=== PATIENT | male | born 1950 | race Caucasian/White ===

== ENCOUNTER 2017-08-18 23:18 | Inpatient (IN) ==
[2017-08-18] MEDS ORDERED: Acetaminophen 325 MG TABLET PO ONE (23:22)
[2017-08-18] MEDS ORDERED: Ondansetron 4 MG/2 ML VIAL IVP ONE (23:22)
[2017-08-18] MEDS ORDERED: 0.9 % Sodium Chloride 1,000 ML IVC ONE (23:25)
--- NOTE | 2017-08-18 23:42 | Emergency Department Note ---
Disposition Clinical Impression: Hypoxia, Pneumonia, COPD exacerbation Disposition: Transfer Short-Term Hosp Condition: Fair Referrals: Mackenzie Lopez [Primary Care Provider] - Forms: ED Satisfaction Letter Time of Disposition: 00:31 ( will admit) Weakness HPI - General Chief complaint: ED Weakness Stated complaint: fever, body aches, and weakness Time Seen by Provider: 08/18/17 23:22 Source: patient, EMS Mode of arrival: EMS Limitations: no limitations Nursing Notes Reviewed: Yes Vital Signs Reviewed: Yes - History of Present Illness HPI Narrative: [age]-year-old male presented to the emergency department via EMS, the complex of generalized weakness. Patient reports that this evening he went to go take a shower and he had some problems with rigors and chills, he covered himself in a blanket and then noted that he was running a temperature. Patient also reports that he has had frequent falls but this is been ongoing for a while. Patient denies chest pain he does complain of shortness shortness of breath. 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 Location: generalized Migration: none Pain Severity: none Pain Scale: 0 Worsens with: none Associated symptoms: Reports: denies other symptoms - Related Data Home Medications Medication Instructions Recorded Confirmed Aspirin [Lo-Dose Aspirin EC] 81 mg PO DAILY 08/18/17 08/18/17 Atorvastatin Calcium [Lipitor] 20 mg PO DAILY 08/18/17 08/18/17 Citalopram Hydrobromide [Celexa] 40 mg PO DAILY 08/18/17 08/18/17 Clopidogrel [Plavix] 75 mg PO DAILY 08/18/17 08/18/17 Clotrimazole/Betameth Dip CRM 1 appl TP BID 08/18/17 08/18/17 [Lotrisone CRM] Ergocalciferol (VITAMIN D2) 50,000 unit PO QWEEK 08/18/17 08/18/17 [Drisdol (50,000 Unit)] Flecainide Acetate 50 mg PO BID 08/18/17 08/18/17 FluocinoNIDE 0.05% CRM [Lidex] 1 applic TP BID 08/18/17 08/18/17 Klonopin 1 mg PO 08/18/17 Omeprazole [PriLOSEC] 40 mg PO BID 08/18/17 08/18/17 Potassium Chloride [K-Tab ER] 10 meq PO DAILY 08/18/17 08/18/17 Verapamil HCl [Verapamil ER] 180 mg PO DAILY 08/18/17 08/18/17 hydroCHLOROthiazide 25 mg PO DAILY 08/18/17 08/18/17 [Hydrochlorothiazide] metFORMIN [Glucophage] 1,000 mg PO BIDWM 08/18/17 08/18/17 Allergies Allergy/AdvReac Type Severity Reaction Status Date / Time tetanus and diphtheria Allergy Hives Verified 08/18/17 23:19 toxoids Antihistamines - Alkylamine AdvReac Palpitation Verified 08/18/17 23:19 s Beta-Blockers AdvReac Palpitation Verified 08/18/17 23:19 (Beta-Adrenergic Bloc s All systems ED: reviewed and negative except as stated. Respiratory: Reports: cough, dyspnea Past Medical History - Past Medical History Medical history: Reports: asthma, COPD, diabetes, hyperlipidemia, hypertension Psychiatric history: Reports: anxiety, depression, PTSD - Social History Smoking Status: Current every day smoker Smokeless Tobacco Status: No Alcohol use: Reports: none Drug use: Reports: none Physical Exam - General Limitations: no limitations General appearance: alert, in no apparent distress - Head Head exam: atraumatic, normocephalic, normal inspection - Eye Eye exam: Present: normal appearance, PERRL, EOMI - Expanded Eye Exam Pupils: Left: reactive - ENT ENT exam: normal exam, normal oropharynx, mucous membranes moist - Expanded ENT Exam External ear exam: Present: normal external inspection Mouth exam: Present: normal external inspection Teeth exam: Present: normal inspection Throat exam: Present: normal inspection - Neck Neck exam: Present: normal inspection, full ROM, trachea midline - Chest Chest inspection: Present: normal inspection, symmetric chest wall rise - Respiratory Respiratory exam: Present: wheezes - Cardiovascular Cardiovascular exam: Present: regular rate, normal rhythm, normal heart sounds - Abdominal Exam Abdominal exam: Present: soft, Non-Tender. Absent: tenderness, distention, guarding, rebound, rigidity - Extremities Exam Extremities exam: Present: normal inspection, full ROM. Absent: tenderness, pedal edema - Expanded Upper Extremity Exam Shoulder exam: Present: normal inspection, full ROM Arm exam: Present: normal inspection, full ROM Elbow exam: Present: normal inspection, full ROM Forearm/Wrist exam: Present: normal inspection, full ROM Hand exam: Present: normal inspection, full ROM Vascular exam: Normal: capillary refill, radial pulse - Expanded Lower Extremity Exam Hip/Pelvis exam: Present: normal inspection, full ROM Upper leg exam: Present: normal inspection, full ROM Knee exam: Present: normal inspection, full ROM Lower leg exam: Present: normal inspection, full ROM Ankle exam: Present: normal inspection, full ROM Foot/toe exam: Present: normal inspection, full ROM Neurovascular/Tendon exam: Absent: motor deficit, sensory deficit, tendon deficit - Back Exam Back exam: Present: normal inspection, full ROM. Absent: tenderness - Neurological Exam Neurological exam: Present: alert, oriented X3 - Expanded Neurological Exam Patient oriented to: Present: person, place, time Coma Scale Eye Opening: Spontaneous Coma Scale Motor Response: Obeys Commands Coma Scale Verbal Response: Oriented Coma Scale Total: 15 - Psychiatric Psychiatric exam: Present: normal affect, normal mood - Skin Skin exam: Present: warm, dry, intact, normal color Course Vital Signs Temperature 99.3 F 08/18/17 23:22 Pulse Rate 105 08/18/17 23:22 Respiratory Rate 18 08/18/17 23:22 Blood Pressure 118/67 08/18/17 23:22 O2 Sat by Pulse Oximetry 95 08/18/17 23:22 Temperature 99.3 F 08/18/17 23:22 Pulse Rate 97 08/19/17 00:26 Respiratory Rate 18 08/19/17 00:26 Blood Pressure 110/56 08/19/17 00:26 O2 Sat by Pulse Oximetry 96 08/19/17 00:26 Oxygen Delivery Oxygen Delivery Room Air Weakness - [facility] Narrative Medical decision making narrative: Labs including blood culture 2 urine analysis was obtained chest x-ray and CT of head without contrast. Patient was given a 1000 ml bolus of normal saline and Zofran 4 mg IV and meclizine 50 mg by mouth. Patient was orthostatic. After blood cultures patient was given 2 g of Rocephin IV. He was given DuoNeb , and albuterol 1. - Differential Diagnosis Differential Diagnosis: Likely: anemia - Medical Records Medical records reviewed: Yes I reviewed the patient's medical records. - Lab Data Lab results reviewed: Yes I reviewed the patient's lab results. Result diagrams: 08/18/17 23:30 08/18/17 23:30 Lab Results 08/18/17 08/18/17 08/18/17 Range/Units 23:30 23:30 23:30 WBC 18.7 H (4.3-11.1) K/mcL RBC 4.03 L (4.19-5.50) M/mcL Hgb 12.5 L (12.9-16.9) g/dL Hct 36.0 L (37.5-50.1) % MCV 89.3 (83.0-100.0) fL MCH 31.0 (28.0-33.3) pg MCHC 34.7 (31.6-35.5) g/dL RDW 12.3 (11.5-14.5) % Plt Count 317 (140-400) K/mcL MPV 9.3 L (9.4-12.4) fL Immature Gran % 0.8 (0-4) % Seg Neutrophils % 85.4 % Lymphocytes % 5.1 % Monocytes % 8.4 % Eosinophils % 0.0 % Basophils % 0.3 % Neutrophils # 16.0 H (1.6-8.9) K/mcL Lymphocytes # 1.0 (0.6-4.6) K/mcL Monocytes # 1.6 H (0.0-1.3) K/mcL Eosinophils # 0.0 (0.0-0.6) K/mcL Basophils # 0.1 (0.0-0.2) K/mcL Sample Site ABG pH (7.32-7.45) pH Units ABG pCO2 (35-45) mmHg ABG pO2 (85-104) mmHg ABG HCO3 (21-27) mEq/L ABG Total CO2 (20-26) mEq/L ABG O2 Saturation (95-98) % ABG Base Excess (-2 to 3) mEq/L Inspired O2 (1-15=lpm xv15-086=%) Sodium 127 L (136-145) mEq/L Potassium 3.8 (3.5-5.1) mEq/L Chloride 96 L (98-107) mEq/L Carbon Dioxide 22 L (23-29) mEq/L BUN 14 (8-23) mg/dL Creatinine 0.91 (0.70-1.30) mg/dL Est GFR ( Amer) > 60 (> 60) Est GFR (Non-Af Amer) > 60 (> 60) BUN/Creatinine Ratio 15 (6-26) Glucose 157 H (70-105) mg/dL Calculated Osmolality 268 L (280-300) Lactic Acid 0.9 (0.5-2.2) mmol/L Calcium 9.3 (8.6-10.3) mg/dL Total Bilirubin 0.6 (0.3-1.0) mg/dL AST 11 L (13-39) Units/L ALT 14 (7-52) Units/L Alkaline Phosphatase 82 (34-104) Units/L Creatine Kinase 50 (30-223) Units/L Troponin I < 0.03 (< 0.04) ng/mL Serum Total Protein 6.9 (6.4-8.9) g/dL Albumin 3.8 (3.5-5.7) g/dL Globulin 3.1 (2.4-3.5) g/dL Albumin/Globulin Ratio 1.2 (1.1-2.2) TSH 0.687 (0.340-5.600) mcIU/mL Person Notif of Crit 08/18/17 Range/Units 23:50 WBC (4.3-11.1) K/mcL RBC (4.19-5.50) M/mcL Hgb (12.9-16.9) g/dL Hct (37.5-50.1) % MCV (83.0-100.0) fL MCH (28.0-33.3) pg MCHC (31.6-35.5) g/dL RDW (11.5-14.5) % Plt Count (140-400) K/mcL MPV (9.4-12.4) fL Immature Gran % (0-4) % Seg Neutrophils % % Lymphocytes % % Monocytes % % Eosinophils % % Basophils % % Neutrophils # (1.6-8.9) K/mcL Lymphocytes # (0.6-4.6) K/mcL Monocytes # (0.0-1.3) K/mcL Eosinophils # (0.0-0.6) K/mcL Basophils # (0.0-0.2) K/mcL Sample Site R Brach ABG pH 7.43 (7.32-7.45) pH Units ABG pCO2 34 L (35-45) mmHg ABG pO2 49 L* (85-104) mmHg ABG HCO3 23 (21-27) mEq/L ABG Total CO2 24 (20-26) mEq/L ABG O2 Saturation 86 L (95-98) % ABG Base Excess -1 (-2 to 3) mEq/L Inspired O2 21.0 (1-15=lpm lw60-391=%) Sodium (136-145) mEq/L Potassium (3.5-5.1) mEq/L Chloride (98-107) mEq/L Carbon Dioxide (23-29) mEq/L BUN (8-23) mg/dL Creatinine (0.70-1.30) mg/dL Est GFR ( Amer) (> 60) Est GFR (Non-Af Amer) (> 60) BUN/Creatinine Ratio (6-26) Glucose (70-105) mg/dL Calculated Osmolality (280-300) Lactic Acid (0.5-2.2) mmol/L Calcium (8.6-10.3) mg/dL Total Bilirubin (0.3-1.0) mg/dL AST (13-39) Units/L ALT (7-52) Units/L Alkaline Phosphatase (34-104) Units/L Creatine Kinase (30-223) Units/L Troponin I (< 0.04) ng/mL Serum Total Protein (6.4-8.9) g/dL Albumin (3.5-5.7) g/dL Globulin (2.4-3.5) g/dL Albumin/Globulin Ratio (1.1-2.2) TSH (0.340-5.600) mcIU/mL Person Notif of Arlette amos - Radiology Data Radiology results reviewed: Yes I reviewed the patient's radiology results. Chest x-ray portable shows a left lower lobe opacity. Radiology reading - EKG Data EKG attestation: Yes I reviewed and interpreted this EKG. EKG results narrative: EKG shows a right bundle branch block pattern EKG shows normal: sinus rhythm Rate: normal, tachycardia [place]/QRS: right axis deviation, RBBB
[2017-08-18 23:52] LABS: Basophils # 0.1 K/mcL (0.0-0.2); Basophils % 0.3 %; Hemoglobin 12.5 g/dL (12.9-16.9); Immature Granulocytes % 0.8 % (0-4); Lymphocytes % 5.1 %; Mean Corpuscular HGB Conc 34.7 g/dL (31.6-35.5); Mean Corpuscular Volume 89.3 fL (83.0-100.0); Mean Platelet Volume 9.3 fL (9.4-12.4); Monocytes # 1.6 K/mcL (0.0-1.3); Monocytes % 8.4 %; Platelet Count 317 K/mcL (140-400); Red Blood Count 4.03 M/mcL (4.19-5.50); Red Cell Distribution Width 12.3 % (11.5-14.5); Segmented Neutrophils % 85.4 %
[2017-08-18] MEDS ORDERED: Ipratropium/Albuterol Neb 3 ML IH ONE (23:52)
[2017-08-18] MEDS ORDERED: Albuterol 2.5 MG/3 ML NEBULIZER IH ONE (23:53)
[2017-08-18 23:55] LABS: ABG Base Excess -1 mEq/L (-2 to 3); ABG HCO3 23 mEq/L (21-27); ABG Oxygen Saturation 86 % (95-98); ABG PCO2 34 mmHg (35-45); ABG PH 7.43 pH Units (7.32-7.45); ABG PO2 49 mmHg (85-104); ABG TCO2 24 mEq/L (20-26)
[2017-08-19 00:12] LABS: Alanine Aminotransferase 14 Units/L (7-52); Albumin 3.8 g/dL (3.5-5.7); Albumin/Globulin Ratio 1.2 (1.1-2.2); Alkaline Phosphatase 82 Units/L (34-104); Aspartate Amino Transferase 11 Units/L (13-39); BUN/Creatinine Ratio 15 (6-26); Bilirubin,Total 0.6 mg/dL (0.3-1.0); Blood Urea Nitrogen 14 mg/dL (8-23); Calcium 9.3 mg/dL (8.6-10.3); Carbon Dioxide 22 mEq/L (23-29); Chloride 96 mEq/L (98-107); Creatine Kinase 50 Units/L (30-223); Globulin 3.1 g/dL (2.4-3.5); Glucose 157 mg/dL (70-105); Osmolality,Calculated 268 (280-300); Potassium 3.8 mEq/L (3.5-5.1); Sodium 127 mEq/L (136-145); Total Protein 6.9 g/dL (6.4-8.9); eGFR For African Americans > 60 (> 60); eGFR For Non-African Americans > 60 (> 60)
[2017-08-19 00:13] LABS: Troponin I < 0.03 ng/mL (< 0.04)
[2017-08-19 00:26] LABS: Thyroid Stimulating Hormone 0.687 mcIU/mL (0.340-5.600)
[2017-08-19] MEDS ORDERED: cefTRIAXone 2,000 MG in 0.9 % Sodium Chloride Mini Bag 100 ML IVP SCH (01:00)
[2017-08-19] MEDS ORDERED: Nicotine 21 MG PATCH.TD24 TD ONE (01:04)
[2017-08-19 04:26] LABS: Bilirubin,Urine Negative (Negative); Blood,Urine Negative (Negative); Clarity,Urine Clear (Clear); Color,Urine Yellow (Yellow); Glucose,Urine (UA) 100 mg/dL (Normal); Ketones,Urine Negative (Negative); Leukocyte Esterase,Urine Negative (Negative); Nitrite,Urine Negative (Negative); Protein,Urine Negative (Neg-Trace); Specific Gravity,Urine <= 1.005 (1.010-1.025); Urobilinogen,Urine Normal (Normal)
[2017-08-19] MEDS: *HR* Metformin 500 MG TABLET PO SCH ×2 (07:57→16:33)
[2017-08-19] MEDS: Nicotine 21 MG PATCH.TD24 TD SCH (07:57)
[2017-08-19] MEDS: Aspirin Enteric Coated 81 MG Tablet PO SCH (07:59)
[2017-08-19] MEDS: FluocinoNIDE 0.05% CRM 15 GM TUBE TP SCH ×2 (07:59→19:58)
[2017-08-19] MEDS: Clotrimazole/Betameth Dip CRM 45 APPL/45 GM TUBE TP SCH ×2 (07:59→19:58)
[2017-08-19] MEDS: Verapamil ER (24 HR) 180 MG TABLET.ER PO SCH (07:59)
[2017-08-19] MEDS ORDERED: Nicotine 21 MG PATCH.TD24 TD SCH (09:00)
[2017-08-19] MEDS ORDERED: hydroCHLOROthiazide 25 MG TABLET PO SCH (09:00)
[2017-08-19] MEDS: Cholecalciferol (D-3) 1,000 UNIT TABLET PO SCH (10:04)
[2017-08-19] MEDS: clonazePAM 0.5 MG TABLET PO SCH ×3 (12:57→20:00)
--- NOTE | 2017-08-19 15:29 | Internal Med History&Physical ---
Date of Encounter: 08/19/17 Time of Encounter: 15:00 Assessment and Plan (1) Pneumonia Current visit: Yes Status: Acute He has been started on Rocephin through emergency room. I will add lactobacillus and Zithromax. Qualifiers: Pneumonia type: due to unspecified organism Laterality: left Lung location: lower lobe of lung Qualified Code(s): J18.1 - Lobar pneumonia, unspecified organism (2) Hypoxia Current visit: Yes Status: Acute Suspect secondary to COPD with superimposed pneumonia. Will test room air oximetry prior to discharge. (3) Hypertension Current visit: Yes Status: Chronic Continue verapamil. He states he does not use HCTZ at home Qualifiers: Hypertension type: essential hypertension Qualified Code(s): I10 - Essential (primary) hypertension (4) Anemia Current visit: Yes Status: Acute Suspect secondary to aspirin and Plavix use. I told him since he is approximately 10 years after stent placement that he does not likely need dual antiplatelet therapy at this time. We will check anemia testing in a.m. Qualifiers: Anemia type: unspecified type Qualified Code(s): D64.9 - Anemia, unspecified (5) Hyponatremia Current visit: Yes Status: Acute He reports he has not used HCTZ and several months. Possibly due to SIADH from pneumonia. We will recheck labs in a.m. Internal Medicine - H&P: HPI Chief complaint: Fevers and chills Admitted From: Emergency Dept Plans for Post Hospital Care: Home History of present illness: Mr. Paulino is a 67 year old male who came to emergency room after he developed fevers and chills a few hours earlier. He was evaluated in emergency room and found to have evidence of left lower lobe pneumonia. He had leukocytosis with left shift on differential. He was admitted to [facility] floor for ongoing care needs. He states he had pneumonia previously approximately 2011. His respiratory history is significant for having smoked since age 11 up to 2-1/2 half packs per day. He reports PFTs were done earlier this year and showed a diagnosis of emphysema. He does not use home oxygen. He has had test for NADIA but has not returned to get results. Past Med Surg Social Fam HX - Past Medical History Medical history: asthma, COPD, diabetes, hyperlipidemia, hypertension Psychiatric history: anxiety, depression, PTSD - Past Surgical History Surgical History: coronary bypass (CABG) - Social History Smoking Status: Current every day smoker Smokeless Tobacco Status: No Alcohol use: none Drug use: none Internal Medicine - H&P: Meds Aspirin [Lo-Dose Aspirin EC] 81 mg PO DAILY 08/18/17 [History] Atorvastatin Calcium [Lipitor] 20 mg PO DAILY 08/18/17 [History] Citalopram Hydrobromide [Celexa] 40 mg PO DAILY 08/18/17 [History] Clopidogrel [Plavix] 75 mg PO DAILY 08/18/17 [History] Clotrimazole/Betameth Dip CRM [Lotrisone CRM] 1 appl TP BID 08/18/17 [History] Ergocalciferol (VITAMIN D2) [Drisdol (50,000 Unit)] 50,000 unit PO QWEEK [History] Flecainide Acetate 50 mg PO BID 08/18/17 [History] FluocinoNIDE 0.05% CRM [Lidex] 1 applic TP BID 08/18/17 [History] Klonopin 1 mg PO 08/18/17 [History] Omeprazole [PriLOSEC] 40 mg PO BID 08/18/17 [History] Potassium Chloride [K-Tab ER] 10 meq PO DAILY 08/18/17 [History] Verapamil HCl [Verapamil ER] 180 mg PO DAILY 08/18/17 [History] hydroCHLOROthiazide [Hydrochlorothiazide] 25 mg PO DAILY 08/18/17 [History] metFORMIN [Glucophage] 1,000 mg PO BIDWM 08/18/17 [History] Albuterol Sulfate [Albuterol Inhaler] 90 mcg IN Q4H PRN 08/19/17 [History] Fluticasone/Vilanterol [Breo Ellipta 100-25 Mcg INH] 1 each IH DAILY 08/19/17 [ History] 3 Allergy/AdvReac Type Severity Reaction Status Date / Time tetanus and diphtheria Allergy Hives Verified 08/18/17 23:19 toxoids Antihistamines - Alkylamine AdvReac Palpitation Verified 08/18/17 23:19 s Beta-Blockers AdvReac Palpitation Verified 08/18/17 23:19 (Beta-Adrenergic Bloc s All Systems PM: A 10-system review of systems was performed and is negative for pertinent findings except as documented above in the HPI. Review of systems: Gen.: He states his weight has increased approximately 15-20 pounds in the past year due to decreased activity Cardiovascular: He has history of hypertension and known ASHD status post 3 vessel CABG approximately 2007. He reports 3 stents were placed a few months after the CABG surgery. He denies angina DVT pulmonary embolism or heart failure. Respiratory: As per history of present illness GI: He has had cholecystectomy. He denies disorders of his liver or exocrine pancreas : He denies hematuria dysuria or kidney stones Neurologic: He denies large distribution strokes or seizures. Endocrine: He was diagnosed with DM 2 approximately 2007. He has hyperlipidemia but no known thyroid disease. Hematology/oncology: He was unaware he had anemia on blood tests in emergency room. He denies internal malignancies or other blood disorders. Psychiatric: He has anxiety and depression but denies other mental health issues. He follows at the mental health clinic. [place] skeletal: He has DJD but denies gout or other bone joint or muscle disorders. - Constitutional Vitals: Temp Pulse Resp BP Pulse Ox 98.8 F 69 18 117/56 96 08/19/17 14:11 08/19/17 14:11 08/19/17 14:11 08/19/17 14:11 08/19/17 14:11 Exam: Gen.: He is a well-developed well-nourished male resting comfortably in bed who appears in no acute distress at present time HEENT: Head is atraumatic and normal cephalic. Eyes: EOMI. There is no scleral icterus. Mouth: Mucosa is moist. Neck: Supple and nontender. There is no thyromegaly or adenopathy noted. Heart: Regular without murmurs gallops or ectopics Lungs: No wheezes or crackles are heard. Abdomen: Soft and nontender. No masses or guarding are noted. He has a small umbilical hernia which is reducible. He has healed right lower quadrant scar from appendectomy surgery. Extremities: There is no cyanosis edema or clubbing noted. Dorsalis pedis and posttibial pulses are 1-2 over 2 bilaterally. Neurologic: Mental status: He is talkative and a good historian. Cranial nerves : Smile is symmetric. Forehead wrinkles bilaterally. Tongue protrudes midline. EOMI. Motor: There is no pronator drift. Cerebellar: Finger to nose is intact bilaterally. Skin: Warm and dry Internal Med - H&P Results - Labs CBC & Chem 7: 08/18/17 23:30 08/18/17 23:30
[2017-08-19] MEDS ORDERED: Azithromycin 500 MG in D5% in Water 250 ML IVPB SCH (16:00)
--- NOTE | 2017-08-19 16:14 | Electrocardiograph Report ---
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
[2017-08-19] MEDS ORDERED: Azithromycin 500 MG VIAL IVPB ONE (16:34)
[2017-08-19] MEDS: Lactobacillus 1 EACH CAP.SPRINK PO SCH (20:00)
[2017-08-20] MEDS ORDERED: cefTRIAXone 2,000 MG in 0.9 % Sodium Chloride Mini Bag 100 ML IVP SCH (01:00)
[2017-08-20 06:19] LABS: Basophils # 0.1 K/mcL (0.0-0.2); Basophils % 0.7 %; Eosinophils # 0.1 K/mcL (0.0-0.6); Eosinophils % 0.7 %; Hematocrit 33.5 % (37.5-50.1); Hemoglobin 11.4 g/dL (12.9-16.9); Immature Granulocytes % 0.4 % (0-4); Lymphocytes % 18.3 %; Mean Corpuscular Hemoglobin 31.4 pg (28.0-33.3); Mean Corpuscular Volume 92.3 fL (83.0-100.0); Mean Platelet Volume 9.5 fL (9.4-12.4); Monocytes % 9.2 %; Neutrophils # 7.7 K/mcL (1.6-8.9); Platelet Count 308 K/mcL (140-400); Red Blood Count 3.63 M/mcL (4.19-5.50); Red Cell Distribution Width 12.8 % (11.5-14.5); Segmented Neutrophils % 70.7 %
[2017-08-20 06:39] LABS: BUN/Creatinine Ratio 10 (6-26); Blood Urea Nitrogen 8 mg/dL (8-23); Calcium 8.6 mg/dL (8.6-10.3); Carbon Dioxide 25 mEq/L (23-29); Chloride 104 mEq/L (98-107); Glucose 159 mg/dL (70-105); Osmolality,Calculated 280 (280-300); Sodium 134 mEq/L (136-145); eGFR For African Americans > 60 (> 60); eGFR For Non-African Americans > 60 (> 60)
[2017-08-20 06:56] VITALS: BP 149/82
[2017-08-20] MEDS: Cholecalciferol (D-3) 1,000 UNIT TABLET PO SCH (08:05)
[2017-08-20] MEDS: Lactobacillus 1 EACH CAP.SPRINK PO SCH (08:05)
[2017-08-20] MEDS: *HR* Metformin 500 MG TABLET PO SCH (08:05)
[2017-08-20] MEDS: Aspirin Enteric Coated 81 MG Tablet PO SCH (08:06)
[2017-08-20] MEDS: clonazePAM 0.5 MG TABLET PO SCH (08:06)
[2017-08-20] MEDS: Verapamil ER (24 HR) 180 MG TABLET.ER PO SCH (08:06)
[2017-08-20] MEDS: Nicotine 21 MG PATCH.TD24 TD SCH (08:06)
--- NOTE | 2017-08-20 09:56 | Discharge Summary ---
Date of Encounter: 08/20/17 Time of Encounter: 09:45 - Discharge Diagnosis (1) Pneumonia Priority: Primary Status: Acute Qualifiers: Pneumonia type: due to unspecified organism Laterality: left Lung location: lower lobe of lung Qualified Code(s): J18.1 - Lobar pneumonia, unspecified organism (2) Hypoxia Priority: Secondary Status: Acute (3) Hypertension Priority: Secondary Status: Chronic Qualifiers: Hypertension type: essential hypertension Qualified Code(s): I10 - Essential (primary) hypertension (4) Anemia Priority: Secondary Status: Acute Qualifiers: Anemia type: unspecified type Qualified Code(s): D64.9 - Anemia, unspecified (5) Hyponatremia Priority: Secondary Status: Acute Hospital course: Mr. Paulino is a 67 year old male who came to emergency room after he developed fevers and chills a few hours earlier. He was evaluated in emergency room and found to have evidence of left lower lobe pneumonia. He had leukocytosis with left shift on differential. He was admitted to [facility] floor for ongoing care needs. Initial orders were written by the emergency room physician. I saw him on August 19 and performed a history and physical. He was started on Rocephin through emergency room. I added Zithromax and lactobacillus. WBC normalized to 10.9 by the following day with resolution of left shift. He remained afebrile. He will continue with antibiotic and probiotic for 4 additional days after discharge. I encouraged him to become a nonsmoker. Room air oximetry on 6 minute walk was ordered prior to discharge. Results are pending at time of this dictation. Sodium level improved to 134 by day of discharge. His PCP can monitor this. Blood pressure remained above desirable range. He will receive a prescription for Toprol-XL and continue verapamil at discharge. I discussed with him that his anemia was likely due to dual antiplatelet therapy. I told him since he was several years after stent placement he could probably decrease aspirin to every other day or discontinue completely. 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 He will follow with his PCP Mackenzie Lopez CNP within 1 week. - Time Spent with Patient Total time spent providing and/or coordinating discharge services: - Discharge Medications Prescriptions: Cefuroxime PO [Ceftin] 500 mg PO Q12HR #8 tablet Azithromycin [Zithromax] 250 mg PO DAILY #4 tablet Lactobacillus [Culturelle] 1 each PO BID #8 cap.sprink Metoprolol XL (24 HR) Succ [Toprol XL] 25 mg PO DAILY #30 tab.er.24h Home Medications: Aspirin [Lo-Dose Aspirin EC] 81 mg PO DAILY 08/18/17 [History] Atorvastatin Calcium [Lipitor] 20 mg PO DAILY 08/18/17 [History] Citalopram Hydrobromide [Celexa] 40 mg PO DAILY 08/18/17 [History] Clopidogrel [Plavix] 75 mg PO DAILY 08/18/17 [History] Clotrimazole/Betameth Dip CRM [Lotrisone CRM] 1 appl TP BID 08/18/17 [History] Ergocalciferol (VITAMIN D2) [Drisdol (50,000 Unit)] 50,000 unit PO QWEEK [History] Flecainide Acetate 50 mg PO BID 08/18/17 [History] FluocinoNIDE 0.05% CRM [Lidex] 1 applic TP BID 08/18/17 [History] Klonopin 1 mg PO 08/18/17 [History] Omeprazole [PriLOSEC] 40 mg PO BID 08/18/17 [History] Potassium Chloride [K-Tab ER] 10 meq PO DAILY 08/18/17 [History] Verapamil HCl [Verapamil ER] 180 mg PO DAILY 08/18/17 [History] metFORMIN [Glucophage] 1,000 mg PO BIDWM 08/18/17 [History] Albuterol Sulfate [Albuterol Inhaler] 90 mcg IN Q4H PRN 08/19/17 [History] Fluticasone/Vilanterol [Breo Ellipta 100-25 Mcg INH] 1 each IH DAILY 08/19/17 [ History] Azithromycin [Zithromax] 250 mg PO DAILY #4 tablet 08/20/17 [Rx] Cefuroxime PO [Ceftin] 500 mg PO Q12HR #8 tablet 08/20/17 [Rx] Lactobacillus [Culturelle] 1 each PO BID #8 cap.sprink 08/20/17 [Rx] Metoprolol XL (24 HR) Succ [Toprol XL] 25 mg PO DAILY #30 tab.er.24h 08/20/17 [ Rx] Allergies/Adverse Reactions: 3 Allergy/AdvReac Type Severity Reaction Status Date / Time tetanus and diphtheria Allergy Hives Verified 08/18/17 23:19 toxoids Antihistamines - Alkylamine AdvReac Palpitation Verified 08/18/17 23:19 s Beta-Blockers AdvReac Palpitation Verified 08/18/17 23:19 (Beta-Adrenergic Bloc s Date of admission: 08/19/17 00:47 Primary care physician: Mackenzie Lopez - Constitutional Vitals: Temp Pulse Resp BP Pulse Ox 98.5 F 99 22 149/82 99 08/20/17 06:53 08/20/17 06:53 08/20/17 06:53 08/20/17 06:53 08/20/17 06:53 - Patient Status Disposition: Home, Self-Care Condition: Fair Overall status at discharge: patient is progressing back to baseline - Discharge Instructions Follow Up With: Mackenzie Lopez [Primary Care Provider] - 1 week - Diet and Activity Activity: resume usual activities as tolerated Diet: advance to your usual diet
== END 2017-08-20 11:39 | disposition home or self-care (01) | DRG 139 ==
LOC: EMEROOPIK 23:18 → INPPIK 23:18
PROVIDERS: ADMIT Internal Medicine; ATTEND Internal Medicine